=== PATIENT | male | born 2005 | race Caucasian/White ===

== ENCOUNTER 2024-02-09 12:25 | Emergency (ER) | payer BC, SELFPAY ==
[2024-02-09] VITALS (8 sets, daily range): BP systolic 90–138; BP diastolic 62–79; PULSE 45–87; RESP 12–20; TEMP 36.4; O2SAT 97–100
--- NOTE | ~2024-02-09 | XR_ITS ---
EXAMINATION: XR chest 1V portable Exam Date/Time: 02/09/2024 14:45 ELECTRONICS LEAD HISTORY: dizziness X 1 DAY Comparison: None. RESULT: Lines, tubes, and devices: None. Lungs and pleura: Clear. Cardiomediastinal silhouette: Normal. Other: No acute osseous or upper abdominal finding. IMPRESSION: No acute cardiopulmonary process. Reviewed, dictated and finalized at location K. TRONICS LEAD
--- NOTE | 2024-02-09 13:56 | ECG_ITS ---
Test Date: 2024-02-09 14:17:49 Measurements Intervals [place] Rate: 43 P: 27 MA: 165 QRS: 81 QRSD: 97 T: 65 QT: 424 QTc: 361 Interpretive Statements SINUS BRADYCARDIA VOLTAGE CRITERIA FOR LVH CONSIDER HIGH LATERAL INFARCT, AGE INDETERMINATE ABNORMAL ECG No previous ECG available for comparison Electronically Signed On 02-09-2024 18:18:57 COMMUNITY PHARMACIST by Vamshi Suarez D.O.
[2024-02-09 14:13] LABS: Basophils Percent Auto 0.4 % (0.2-1.2); Eosinophils Absolute Auto 0.1 K/mm3 (0-0.3); Eosinophils Percent Auto 1.9 % (0-4.4); Immature Granulocyte Absolute 0.02 K/mm3 (0.00-0.031); Immature Granulocyte Percent A 0.4 % (0-0.5); Lymphocytes Absolute Auto 0.84 K/mm3 (0.9-3.2); Lymphocytes Percent Auto 17.5 % (18.3-44.2); Mean Corpuscular HGB Conc 34.1 g/dl (32-36); Mean Corpuscular Hemoglobin 29.7 pg (26-34); Mean Platelet Volume 8.6 fl (7.4-10.4); Monocytes Absolute Auto 0.3 K/mm3 (0.1-0.6); Monocytes Percent Auto 6.3 % (2.6-8.5); Neutrophils Absolute Auto 3.5 K/mm3 (1.3-6.7); Neutrophils Percent Auto 73.5 % (45.5-73.1); Platelet Count Result 263 k/mm3 (150-375); Red Blood Count 4.71 M/mm3 (4.6-6.20); Red Cell Distribution Width 13.1 % (11.5-14.5); White Blood Count 4.8 K/mm3 (4.5-10.0)
[2024-02-09 14:29] LABS: Add Urine Microscopic? YES; Appearance Urine Clear (Clear); Bacteria Urine None Seen /hpf; Bilirubin Urine Negative (Negative); Blood Urine Negative (Negative); Color Urine Yellow (Yellow); Glucose Urine UA Negative (Negative); Ketones Urine Negative (Negative); Leukocyte Esterase Ur Trace LEU/UL (Negative); Nitrate Urine Negative (Negative); Non Pathogenic Casts 0-2; Protein Urine Negative (Negative); RBC Urine 0-2 /hpf (0-2); Specific Grav Ur 1.008 (1.001-1.035); Squamous Epithelial Cell Urine None Seen /hpf (Few); Urobilinogen Urine 0.2 mg/dL (<2.0); pH Urine 7.5 (5.0-9.0)
[2024-02-09 14:32] LABS: Alanine Aminotransferase 17 U/L (6-50); Albumin Level 4.3 g/dL (3.5-5.1); Alkaline Phosphatase 55 U/L (38-126); Anion Gap 7 mmol/L (4-12); Aspartate Amino Transferase 38 U/L (17-59); Bilirubin,Total 0.5 mg/dL (0.2-1.3); Blood Urea Nitrogen 11 mg/dL (9-20); Calcium 8.9 mg/dL (8.4-10.2); Carbon Dioxide 27 mmol/L (22-30); Chloride 104 mmol/L (98-107); Estimated CRCL calculation 107 ml/min; Estimated Glomerular Filt Rate > 60; Glucose 87 mg/dL (65-110); Magnesium 2.1 mg/dL (1.6-2.3); Potassium 3.8 mmol/L (3.4-5.0); Sodium 138 mmol/L (137-145)
[2024-02-09] MEDS: SODIUM CHLORIDE 0.9% IV 1,000 ML 999 ML IV CONT ×2 (14:34→15:59)
[2024-02-09 14:42] LABS: Troponin I < 0.012 ng/mL (0.000-0.034)
--- NOTE | 2024-02-09 15:11 | ED.GENADULT ---
HPI - General Adult General Chief complaint: Dizziness Stated complaint: dizziness Time Seen by Provider: 02/09/24 13:44 History of Present Illness HPI narrative: patient is a 18-year-old gentleman who presents emergency department with chief complaint of dizziness. Patient reports that he has noticed that his heart is been beating fast at times reports that he feels as though the room is spinning similar to whenever he is intoxicated the patient states that he has had some decreased hearing out of his right ear Related Data Allergies Allergy/AdvReac Type Severity Reaction Status Date / Time No Known Allergies Allergy Verified 02/09/24 12:25 Review of Systems Review of Systems: A 10 system review of systems was completed on the patient and is negative except for what is stated in the HPI. Nursing and ancillary documentation was reviewed. Exam Narrative: GENERAL: Well-appearing, well-nourished, and in no acute distress. HEAD: Normocephalic, atraumatic. EYES: PERRLA and EOMI. ENT: Nares clear, no rhinorrhea or epistaxis. Mucous membranes moist. large amount of cerumen in the right external auditory canal NECK: Supple. CHEST: Clear to auscultation. No respiratory distress. HEART: Regular rate and rhythm. No murmur heard. Normal peripheral pulses. ABDOMEN: Soft, nontender, nondistended, normal active bowel sounds. EXTREMITIES: Normal range of motion. No edema. SKIN: Warm, dry, no rash. NEURO: No focal deficits. Alert and oriented x3. PSYCH: Normal mood and affect. Course Vital Signs Vital signs: Vital Signs Temperature 36.4 C 02/09/24 12:50 Pulse Rate 87 02/09/24 12:50 Respiratory Rate 16 02/09/24 12:50 Blood Pressure 124/70 02/09/24 12:50 Pulse Oximetry 97 02/09/24 12:50 Oxygen Delivery Room Air 02/09/24 12:50 Temperature 36.4 C 02/09/24 12:50 Pulse Rate 83 02/09/24 15:32 Respiratory Rate 20 02/09/24 15:28 Blood Pressure 138/69 02/09/24 15:32 Pulse Oximetry 99 02/09/24 15:28 Oxygen Delivery Room Air 02/09/24 12:50 Medical Decision Making [facility] Narrative Medical decision making narrative: differential diagnosis includes UTI, dehydration, near syncope dysrhythmia patient was having some bradycardia rate 50s. Patient feels much better after the nursing staff was able to irrigate his ear and removed a large amount of cerumen urinalysis showed evidence of UTI the patient has had some urinary symptoms. Vital Signs Vital Signs: Vital Signs Temperature 36.4 C 02/09/24 12:50 Pulse Rate 87 02/09/24 12:50 Respiratory Rate 16 02/09/24 12:50 Blood Pressure 124/70 02/09/24 12:50 Pulse Oximetry 97 02/09/24 12:50 Oxygen Delivery Room Air 02/09/24 12:50 Temperature 36.4 C 02/09/24 12:50 Pulse Rate 83 02/09/24 15:32 Respiratory Rate 20 02/09/24 15:28 Blood Pressure 138/69 02/09/24 15:32 Pulse Oximetry 99 02/09/24 15:28 Oxygen Delivery Room Air 02/09/24 12:50 Lab Data 02/09/24 14:05 02/09/24 14:05 Labs: Lab Results 02/09/24 02/09/24 Range/Units 14:05 14:11 WBC 4.8 (4.5-10.0) K/mm3 RBC 4.71 (4.6-6.20) M/mm3 Hgb 14.0 (14.0-18.0) g/dL Hct 41.0 L (42.0-52.0) % MCV 87.0 (80-100) fl MCH 29.7 (26-34) pg MCHC 34.1 (32-36) g/dl RDW 13.1 (11.5-14.5) % Plt Count 263 (150-375) k/mm3 MPV 8.6 (7.4-10.4) fl Immature Gran % (Auto) 0.4 (0-0.5) % Neut % (Auto) 73.5 H (45.5-73.1) % Lymph % (Auto) 17.5 L (18.3-44.2) % [place] % (Auto) 6.3 (2.6-8.5) % Eos % (Auto) 1.9 (0-4.4) % Baso % (Auto) 0.4 (0.2-1.2) % Lymph # (Auto) 0.84 L (0.9-3.2) K/mm3 [place] # (Auto) 0.3 (0.1-0.6) K/mm3 Eos # (Auto) 0.1 (0-0.3) K/mm3 Baso # (Auto) 0.0 (0.0-0.1) K/mm3 Abs Immat Gran (auto) 0.02 (0.00-0.031) K/mm3 Absolute Neuts (auto) 3.5 (1.3-6.7) K/mm3 Absolute Nucleated RBC 0.000 (0.0-0.012) K/mm3 Nucleated RBC % 0.0 (0.0-0.2) % Sodium 138 (137-145) mmol/L Potassium 3.8 (3.4-5.0) mmol/L Chloride 104 (98-107) mmol/L Carbon Dioxide 27 (22-30) mmol/L Anion Gap 7 (4-12) mmol/L BUN 11 (9-20) mg/dL Creatinine 0.80 (0.7-1.3) mg/dL Estim Creat Clear Calc 107 ml/min Estimated GFR > 60 (59 - ) Glucose 87 (65-110) mg/dL Calcium 8.9 (8.4-10.2) mg/dL Magnesium 2.1 (1.6-2.3) mg/dL Total Bilirubin 0.5 (0.2-1.3) mg/dL AST 38 (17-59) U/L ALT 17 (6-50) U/L Alkaline Phosphatase 55 (38-126) U/L Troponin I < 0.012 (0.000-0.034) ng/mL Total Protein 7.0 (6.3-8.2) g/dL Albumin 4.3 (3.5-5.1) g/dL Urine Color Yellow (Yellow) Urine Appearance Clear (Clear) Urine pH 7.5 (5.0-9.0) Ur Specific [place] 1.008 (1.001-1.035) Urine Protein Negative (Negative) mg/dL Urine Glucose (UA) Negative (Negative) mg/dL Urine Ketones Negative (Negative) mg/dL Ur Blood (Man) Negative (Negative) Urine Nitrate Negative (Negative) Urine Bilirubin Negative (Negative) Urine Urobilinogen 0.2 (<2.0) mg/dL Leukocyte Esterase Rfl Trace H (Negative) NICHOLAS/UL Urine RBC 0-2 (0-2) /hpf Urine WBC 6-10 H (0-3) /hpf Ur Squamous Epith Cells None seen (Few) /hpf Urine Bacteria None seen /hpf Urine Casts 0-2 Discharge Plan Discharge Clinical Impression: Impacted cerumen of right ear, Orthostatic hypotension, Acute UTI Patient Disposition: Home, Self-Care Condition: Stable Instructions: Antibiotic Form, Urinary Tract Infection in Men (ED), Dizziness (ED) Prescriptions: New doxycycline hyclate 100 mg tablet 100 mg PO BID Qty: 14 0RF Follow-up/Referrals: PHYSICIAN,MARKETING ADMINISTRATIVE ASSISTANT [Primary Care Provider] - Brandon Gil MD [Physician] -
[2024-02-09] MEDS: HYDROGEN PEROXIDE 3% SOLN(*SP) 473 ML BOTTLE (15:28)
[2024-02-09] MEDS: DOXYCYCLINE HYCLATE 100 MG TABLET PO (16:42)
== END 2024-02-09 16:52 | disposition home or self-care (01) ==
PROVIDERS: Emergency Provider Emergency Medicine
DX: I95.1 Orthostatic hypotension (principal); N39.0 Urinary tract infection, site not specified; H61.21 Impacted cerumen, right ear; R00.1 Bradycardia, unspecified; R94.31 Abnormal electrocardiogram [ECG] [EKG]
CPT/HCPCS: 36415; 69209; 71045; 80053; 81001; 83735; 84484; 85025; 87086; 93005; 96361; 96374; 99284; A9270; J0696; J7030

== ENCOUNTER 2024-03-27 15:04 | Emergency (ER) | payer BC, SELFPAY ==
--- NOTE | ~2024-03-27 | XR_ITS ---
XR chest 1V Ordering provider: Gabriel Blood PA-C History: 18 years Male with . dizziness, palpitations . Comparison: February 09, 2024 FINDINGS: MEDIASTINUM: The cardiac silhouette is not enlarged. LUNGS: No infiltrates, effusions or pneumothorax. OTHER: No free air under the diaphragm. IMPRESSION: No acute cardiopulmonary pathology. Reviewed, dictated and finalized at location A. ER STITCHER OPERATOR
[2024-03-27 15:18] VITALS: BP 132/66; PULSE 88; RESP 18; TEMP 36.8; O2SAT 98
--- NOTE | 2024-03-27 16:42 | ED_ITS ---
HPI - Dizziness General Chief Complaint: Dizziness Stated Complaint: loss of appetite, dizzy, tingling to fingers Focused HPI: this is a 18-year-old male who presents to the ED for chief complaint of dizziness over the past couple of days. Reports it seems to come and go at random. He does note that it is usually when he is up and walking when the dizziness comes on. States that he will feel lightheaded at times but has not had a full syncope. Does not feel that the room is spinning. Reports associated congestion, body aches and sore throat. States that he has lost his appetite and is having 1 loose stool per day. GENERAL: Well-appearing, well-nourished, and in no acute distress. HEAD: Normocephalic, atraumatic. CHEST: Clear to auscultation. No respiratory distress. HEART: Regular rate and rhythm. NEURO: Alert and oriented x3. Patient screened in triage and initial orders placed. Additional care and disposition to be based upon diagnostic testing and treatment. Source: patient Mode of arrival: ambulatory Limitations: no limitations Related Data Allergies Allergy/AdvReac Type Severity Reaction Status Date / Time No Known Allergies Allergy Verified 02/09/24 12:25 Course Vital Signs Vital signs: Vital Signs Temperature 98.2 F 03/27/24 15:18 Pulse Rate 88 03/27/24 15:18 Respiratory Rate 18 03/27/24 15:18 Blood Pressure 132/66 03/27/24 15:18 Pulse Oximetry 98 03/27/24 15:18 Oxygen Delivery Room Air 03/27/24 15:18 Temperature 98.2 F 03/27/24 15:18 Pulse Rate 88 03/27/24 15:18 Respiratory Rate 18 03/27/24 15:18 Blood Pressure 132/66 03/27/24 15:18 Pulse Oximetry 98 03/27/24 15:18 Oxygen Delivery Room Air 03/27/24 15:18 Discharge Plan Discharge Patient Language: [place] Prescriptions: No Action doxycycline hyclate 100 mg tablet 100 mg PO BID Qty: 14 0RF Follow-up/Referrals: PHYSICIAN,OIL WELL SERVICE OPERATOR [Primary Care Provider] -
[2024-03-27 20:05] LABS: Basophils Percent Auto 0.5 % (0.2-1.2); Eosinophils Absolute Auto 0.1 K/mm3 (0-0.3); Hematocrit 45.3 % (42.0-52.0); Hemoglobin 15.4 g/dL (14.0-18.0); Immature Granulocyte Absolute 0.01 K/mm3 (0.00-0.031); Immature Granulocyte Percent A 0.2 % (0-0.5); Lymphocytes Absolute Auto 1.46 K/mm3 (0.9-3.2); Lymphocytes Percent Auto 23.3 % (18.3-44.2); Mean Corpuscular Hemoglobin 29.2 pg (26-34); Mean Corpuscular Volume 85.8 fl (80-100); Mean Platelet Volume 8.5 fl (7.4-10.4); Monocytes Absolute Auto 0.4 K/mm3 (0.1-0.6); Monocytes Percent Auto 5.9 % (2.6-8.5); Neutrophils Absolute Auto 4.3 K/mm3 (1.3-6.7); Neutrophils Percent Auto 69.1 % (45.5-73.1); Platelet Count Result 318 k/mm3 (150-375); Red Blood Count 5.28 M/mm3 (4.6-6.20); Red Cell Distribution Width 12.3 % (11.5-14.5); White Blood Count 6.3 K/mm3 (4.5-10.0)
[2024-03-27 20:15] LABS: Alanine Aminotransferase 14 U/L (6-50); Alkaline Phosphatase 70 U/L (38-126); Anion Gap 5 mmol/L (4-12); Aspartate Amino Transferase 24 U/L (17-59); Bilirubin,Total 1.1 mg/dL (0.2-1.3); Blood Urea Nitrogen 11 mg/dL (9-20); Calcium 9.3 mg/dL (8.4-10.2); Carbon Dioxide 25 mmol/L (22-30); Chloride 107 mmol/L (98-107); Estimated CRCL calculation 107 ml/min; Estimated Glomerular Filt Rate > 60; Glucose 95 mg/dL (65-110); Potassium 3.8 mmol/L (3.4-5.0); Sodium 137 mmol/L (137-145)
[2024-03-27 20:42] LABS: Influenza A QL RT-PCR Negative (Negative); Influenza B QL RT-PCR Negative (Negative); RSV RNA, RT-PCR Negative (Negative); SARS-CoV-2 RNA PCR Negative (Negative)
== END 2024-03-27 21:40 | disposition left against medical advice (07) ==
PROVIDERS: Emergency Provider Physician Assistant
DX: R42 Dizziness and giddiness (principal); Z20.822 Contact with and (suspected) exposure to COVID-19
CPT/HCPCS: 36415; 71045; 80053; 85025; 87637; 99283